=== PATIENT | female | born 1980 | race Two or more races ===

== ENCOUNTER 2022-02-25 09:57 | Outpatient (REF) | payer MEDICAID, SELFPAY ==
--- NOTE | 2022-02-25 | EMG_ITS ---
Right median and ulnar motor and sensory studies were performed. Right radial sensory study was performed, right tibial and peroneal motor studies were performed. Right superficial peroneal and sural sensory studies were performed. Right tibial H-reflex was obtained and paraspinal muscles were tested. IMPRESSION: 1. [id number] right median neuropathy across carpal tunnel. 2. No evidence of significant abnormality in right lower extremity. MD JEZ Estrada/DEMARCUS / [id number]
== END 2022-02-25 09:58 | disposition home or self-care (01) ==
LOC: HO.NEURO 09:57
PROVIDERS: Visit Provider Family Medicine
DX: M79.601 Pain in right arm (principal); M79.604 Pain in right leg; R20.0 Anesthesia of skin
CPT/HCPCS: 95886; 95911

== ENCOUNTER 2024-07-20 10:32 | Outpatient (REF) | payer MEDICAID, SELFPAY ==
[2024-07-20 12:03] LABS: MANUAL DIFF FLAG NO
[2024-07-20 12:16] LABS: Basophils Absolute Auto 0.1 X10*3/uL (0.0-0.2); Basophils Percent Auto 0.5 % (0-2); Eosinophils Absolute Auto 0.2 X10*3/uL (0.0-0.4); Eosinophils Percent Auto 2.1 % (0-4); Hematocrit 43.4 % (37.0-47.0); Hemoglobin 15.1 g/dl (12.0-16.0); Imm Gran Abs Auto 0.04 X10*3/uL (0.00-0.03); Imm Gran Pct Auto 0.4 % (0.0-0.4); Lymphocytes Absolute Auto 3.2 X10*3/uL (1.2-4.9); Lymphocytes Percent Auto 29.2 % (20-40); Mean Corpuscular HGB Conc 34.8 g/dl (31.0-35.0); Mean Corpuscular Hemoglobin 32.7 pg (27.0-33.0); Mean Corpuscular Volume 93.9 fL (80.0-98.0); Mean Platelet Volume 10.4 fL (9.4-12.3); Monocytes Absolute Auto 0.7 X10*3/uL (0.1-1.2); Monocytes Percent Auto 6.6 % (2-11); Neutrophils Absolute Auto 6.7 x10*3/uL (2.0-8.3); Neutrophils Percent Auto 61.2 % (45-73); Platelet Count 359 X10*3/uL (160-400); Red Blood Count 4.62 X10*6/uL (4.20-5.50); Red Cell Distribution Width 13.7 % (11.0-16.0); White Blood Count 10.9 X10*3/uL (4.8-10.8)
[2024-07-20 12:50] LABS: Alanine Aminotransferase 23 U/L (0-31); Albumin Level 4.4 g/dL (3.5-5.0); Alkaline Phosphatase 96 U/L (39-117); Anion Gap 12 (12-20); Aspartate Amino Transferase 12 U/L (5-31); Bilirubin Total 0.2 mg/dL (0.0-1.0); Blood Urea Nitrogen 12 mg/dL (9-16); Calcium 9.8 mg/dL (8.4-10.2); Carbon Dioxide 22 mmol/L (22-29); Chloride 109 mmol/L (96-108); Cholesterol 194 mg/dL (<200); Estimated Glomerular Filt Rate > 60; Glucose Random 98 mg/dL (60-115); HDL Cholesterol 42 mg/dL (>40); LDL Cholesterol Calculated 107 mg/dL (<100); Potassium 3.5 mmol/L (3.3-5.1); Sodium 139 mmol/L (135-145); Total Protein 7.8 g/dL (6.5-8.0); Triglycerides 225 mg/dL (<150)
[2024-07-20 12:58] LABS: TSH reflex Free T4 3.18 uIU/mL (0.32-4.0)
[2024-07-20 13:21] LABS: Estimated Average Glucose 100 mg/dL; Hemoglobin A1C 121.3532 umol/L; Hemoglobin A1c % 5.1 % (<6.0); Total Hemoglobin (HGBA1C) 3735.8142 umol/L
[2024-07-20 14:22] LABS: Reflex LDLD? No
[2024-07-21 14:38] LABS: Bacterial Vaginosis PCR POSITIVE (Negative); Candida Group PCR NOT DETECTED (Not Detect); Candida glab krusei PCR NOT DETECTED (Not Detect); Trichomonas vaginalis PCR NOT DETECTED (Not Detect)
[2024-07-22 04:09] LABS: HIV AB/AG Nonreactive (Nonreactive); HIV Num 1 0.05 S/CO (0.00-0.99)
[2024-07-23 13:03] LABS: RPR Rapid Plasma Reagin NON-REACTIVE (NON-REACTIVE)
[2024-07-23 13:24] LABS: HCV Log PCR <1.18 NOT DETECTED Log IU/mL (NOT DETECTED); HepC Viral Load <15 NOT DETECTED IU/mL (NOT DETECTED)
[2024-07-25 14:37] LABS: HPV mRNA E6/E7 Not Detected (Not Detected)
== END 2024-07-20 10:33 | disposition home or self-care (01) ==
LOC: HO.CHCLDS 10:32
PROVIDERS: Visit Provider Internal Medicine
DX: Z12.4 Encounter for screening for malignant neoplasm of cervix (principal); Z11.3 Encounter for screening for infections with a predominantly sexual mode of transmission; Z11.4 Encounter for screening for human immunodeficiency virus [HIV]; Z00.00 Encounter for general adult medical examination without abnormal findings
CPT/HCPCS: 0352U; 36415; 80053; 80061; 83036; 84443; 85025; 86592; 87389; 87522; 87624; 88175

== ENCOUNTER 2024-09-22 13:35 | Outpatient (REF) | payer MEDICAID, SELFPAY ==
[2024-09-22 15:12] LABS: Bacterial Vaginosis PCR NEGATIVE (Negative); Candida Group PCR DETECTED (Not Detect); Candida glab krusei PCR NOT DETECTED (Not Detect); Trichomonas vaginalis PCR NOT DETECTED (Not Detect)
[2024-09-22 15:40] LABS: CT PCR NOT DETECTED (Not Detect.); NG PCR NOT DETECTED (Not Detect.)
== END 2024-09-22 13:36 | disposition home or self-care (01) ==
LOC: HO.HHCLNP 13:35
PROVIDERS: Visit Provider Internal Medicine
DX: N76.0 Acute vaginitis (principal)
CPT/HCPCS: 0352U; 87491; 87591